=== PATIENT | female | born 1955 | race Caucasian/White ===

== ENCOUNTER 2022-12-22 10:52 | Day surgery (SDC) | payer MEDICARE, OTHER ==
[~2022-12-22] VITALS: Ht 160 cm; Wt 68.2 kg
[~2022-12-22 10:52] MED LIST: ASPIR-LOW81 MG PO; CALCIUM600 MG PO; CRANBERRY 12,61 EACH PO; DICLO GEL1 EACH TOP; DITROPAN XL10 MG PO; FISH OIL 1,3601 EACH PO; LATANOPROST 0.7.5 ML OP; LEVOTHYROXINE75 MCG PO; VITAMIN A8000 UNIT PO; VITAMIN C1000 MG PO; VITAMIN D1000 UNI1 PO
[2022-12-22 11:10] VITALS: BP 132/67
--- NOTE | 2022-12-22 13:18 | NUR ---
12/22/22 1318 Sheets,Ni 1314 PT ARRIVED TO PACU ON RA. PT WAKES EASILY AND DENIES CONCERNS. PT EASILY FALLS BACK TO SLEEP. RESP EVEN AND UNLABORED.
[2022-12-22 14:00] VITALS: BP 122/72
--- NOTE | 2022-12-27 11:30 | OR ---
[facility] [address] [place], [place] [address] Signed DATE OF OPERATION: 12/22/2022 SURGEON: Corie Mercado MD PREOPERATIVE DIAGNOSES: 1. History of hyperplastic polyp in 2018. 2. Family history of colon cancer (maternal grandmother). POSTOPERATIVE DIAGNOSIS: Small linear polyp probably hyperplastic at the splenic flexure. PROCEDURE: Total colonoscopy to cecum with cold morcellation polypectomy x1. ANESTHESIA: Intravenous sedation, fentanyl 100 mcg and Versed 5 mg. INDICATION: This 67-year-old white woman is a patient of OUMOU Ashby and underwent colonoscopy in 2018, at which time she was found to have a hyperplastic polyp in the sigmoid colon. She has family history of colon cancer in a maternal grandmother. She currently has no symptoms of bleeding, diarrhea or constipation. She understands the risk of bleeding, infection, and perforation related to colonoscopy and wished to proceed. FINDINGS: The prep was excellent. Complete colonoscopy was undertaken to the cecum without question. She had a linear appearing polyp at the proximal descending colon, most suggestive of hyperplastic changes rather than adenomatous change. The remaining colon was essentially normal. PROCEDURE IN DETAIL: The patient was brought to the endoscopy suite and placed in lateral decubitus position given intravenous sedation to the point of slurred speech and nystagmus. Digital rectal examination was normal. Full cardiopulmonary monitoring was maintained. An Olympus video colonoscope was passed in the rectum and manipulated throughout the colon ultimately intubating the cecum itself. The ileocecal valve and appendiceal orifice were normal. The scope was withdrawn and examination throughout showed no sign of abnormality into the proximal descending colon at about the splenic flexure and linear mucosal abnormality was noted. It was not typical of an adenoma but was excised nevertheless with cold morcellation technique. Further withdrawal of scope showed no Electronically Signed By: CORIE MERCADO MD 12/27/22 1130 PATIENT NAME: ROSALEE GORE OPERATIVE REPORT DATE OF : 55 REPORT #: [id number] PHYSICIAN: CORIE MERCADO MD PCP: HOWIE ENG REPORT IS CONFIDENTIAL AND NOT TO BE RELEASED WITHOUT AUTHORIZATION [facility] [address] [place] [id number] Signed other concerning findings. Retroflexed view was normal as well. The scope was withdrawn. The patient was taken to the recovery room in good condition having suffered no complication. CONCLUDING DIAGNOSIS: Small polyp proximal descending colon, possibly hyperplastic. PLAN: Recommend repeat colonoscopy in 5-7 years, sooner if symptoms should occur. She will return to the ongoing care of OUMOU Ashby. MD ISAIAH Vázquez/LUZ MARIA /[id number] cc: OUMOU Ashby Copies: HOWIE ENG ~ Electronically Signed By: CORIE MERCADO MD 12/27/22 1130 PATIENT NAME: ROSALEE GORE OPERATIVE REPORT DATE OF : 55 REPORT #: [id number] PHYSICIAN: CORIE MERCADO MD PCP: HOWIE ENG REPORT IS CONFIDENTIAL AND NOT TO BE RELEASED WITHOUT AUTHORIZATION
--- NOTE | 2022-12-28 16:53 | PATH ---
[facility] [address] [facility] [place], [place] [address] Signed SPECIMEN(S): A SPLENIC FLEXURE COLON POLYP SPECIMEN SOURCE: A. SPLENIC FLEXURE COLON POLYP CLINICAL HISTORY: History of polyp, rectal bleeding. Postop: Polyp x1. FINAL PATHOLOGIC DIAGNOSIS: Splenic flexure colon polyp: - Hyperplastic polyp (two fragments). JVR:joe MICROSCOPIC EXAMINATION: Histologic sections of all submitted blocks are examined by light microscopy. These findings, together with the gross examination, support the pathologic diagnosis. GROSS DESCRIPTION: The specimen, labeled and designated "[place] splenic flexure colon polyp," is received in formalin and consists of two ruby soft tissue fragments, ranging from 0.2-0.3 cm. Entirely submitted in (A1). VB (under the direct supervision of a pathologist) The Gross Description was prepared using a voice recognition system. The report was reviewed for accuracy; however, sound-alike word errors, addition and/or deletions may occur. If there is any question about this report, please contact Client Services. PERFORMING LABORATORY: Technical component was performed by [facility], [address] [place] [id number] (CLIA# [id number]). Professional interpretation was performed by [facility], [address] [place] [id number] (CLIA#: [id number]). Diagnostician: Nabil Mathew MD Pathologist Electronically Signed 12/28/2022 Copies: PATIENT NAME: ROSALEE GORE PATHOLOGY DATE OF : 55 REPORT #: [id number] PHYSICIAN: MIGUELINA PATHOLOGY PCP: HOWIE ENG REPORT IS CONFIDENTIAL AND NOT TO BE RELEASED WITHOUT AUTHORIZATION [address] [address] Signed ~ PATIENT NAME: ROSALEE OGRE PATHOLOGY DATE OF : 55 REPORT #: [id number] PHYSICIAN: MIGUELINA PATHOLOGY PCP: HOWIE ENG REPORT IS CONFIDENTIAL AND NOT TO BE RELEASED WITHOUT AUTHORIZATION
== END 2022-12-22 14:14 | disposition home or self-care (01) ==
LOC: DS 10:52 → OPS 10:52 → DS 10:58 → OPS 12:30 → DS 13:00 → OPS 13:00
PROVIDERS: ATTEND Surgery
PROC: 0DBM8ZZ Excision of Descending Colon, Via Natural or Artificial Opening Endoscopic (ICD-10-PCS; principal; 2022-12-22 12:30)
DX: Z12.11 Encounter for screening for malignant neoplasm of colon (principal); Z80.0 Family history of malignant neoplasm of digestive organs; Z86.010 Personal history of colon polyps; K63.5 Polyp of colon
CPT/HCPCS: 88305; 99153; G0500; J2250; J3010; J7121